=== PATIENT | female | born 1970 | race Native Hawaiian/Other Pacific Islander ===

== ENCOUNTER 2016-10-31 01:41 | Inpatient (IN) | payer BC ==
[~2016-10-31] VITALS: Ht 170.2 cm; Wt 203.7 kg
[~2016-10-31 01:41] MED LIST: AMOX875T8 PO; ASA LOW DOSE81 MG OR; CALCI20 OR; CETI10TA PO; CIPRO XR500 MG PO; CLOP75TA2 PO; CODEINE OR; CYAN10009 IM; FURO20TA67 PO; LISI20TA31 OR; LISI20TA31 PO; METF500T PO; MICRO-K10 MEQ PO; PHENTERMINE37.5 MG OR; POTASSIUM CHLO10 ME2 PO; POTASSIUM25 MEQ OR; VITAMIN D400 UNIT OR; ZANTAC 75 PO; [UNRECOGNIZED DRUG - OTHER] OR
[2016-10-31 02:00] VITALS: BP 148/64; TEMP 98.6
[2016-10-31 02:59] LABS: PLATELET COUNT 82 K/uL (152-353)
[2016-10-31 03:07] LABS: POTASSIUM 3.7 mmol/L (3.6-5.2); SODIUM 134 mmol/L (136-145)
[2016-10-31 06:20] VITALS: BP 86/44; TEMP 98.9; Ht 170.2 cm; Wt 203.7 kg
[2016-10-31 08:19] VITALS: BP 119/47; TEMP 97.8
[2016-10-31 11:07] LABS: PLATELET COUNT 82 K/uL (152-353)
[2016-10-31 11:52] LABS: POTASSIUM 4.1 mmol/L (3.6-5.2)
[2016-10-31 12:00] VITALS: BP 102/58; TEMP 99
[2016-10-31 14:24] LABS: PARTIAL THROMBOPLASTIN TIME 26.7 SECONDS (24.5-33.6)
[2016-10-31 16:00] VITALS: BP 139/67; TEMP 98.7
[2016-10-31 21:22] VITALS: BP 104/47; TEMP 99
[2016-11-01 00:10] VITALS: BP 98/38; TEMP 98.9
[2016-11-01 04:00] VITALS: BP 114/42; TEMP 98.4
[2016-11-01 05:28] LABS: PLATELET COUNT 88 K/uL (152-353)
[2016-11-01 05:49] LABS: POTASSIUM 4.1 mmol/L (3.6-5.2)
[2016-11-01 08:06] VITALS: BP 107/47; TEMP 98.2
[2016-11-01 12:01] VITALS: BP 127/49; TEMP 98
[2016-11-01 16:00] VITALS: BP 137/47; TEMP 98.3
[2016-11-01 20:23] VITALS: BP 140/45; TEMP 98.2
[2016-11-02 00:06] VITALS: BP 126/42; TEMP 98
[2016-11-02 05:13] LABS: PLATELET COUNT 95 K/uL (152-353)
[2016-11-02 05:23] VITALS: BP 99/42; TEMP 98.3
[2016-11-02 06:02] LABS: POTASSIUM 4.3 mmol/L (3.6-5.2)
[2016-11-02 08:00] VITALS: BP 131/67; TEMP 98.4
[2016-11-02 12:00] VITALS: BP 100/55; TEMP 98.8
== END 2016-11-02 14:00 | disposition home or self-care (01) | DRG 602 ==
LOC: ED 01:41 → MED/SURG 04:45
PROVIDERS: Internal Medicine; ADMIT Specialist
DX: L03.116 Cellulitis of left lower limb (principal); I33.9 Acute and subacute endocarditis, unspecified; I89.0 Lymphedema, not elsewhere classified; R06.09 Other forms of dyspnea; E11.9 Type 2 diabetes mellitus without complications; Z86.73 Personal history of transient ischemic attack (TIA), and cerebral infarction without residual deficits; M15.8 Other polyosteoarthritis; I10 Essential (primary) hypertension; K74.69 Other cirrhosis of liver; E66.01 Morbid (severe) obesity due to excess calories
CPT/HCPCS: 36415; 36600; 80048; 80053; 81000; 82140; 82550; 82553; 82805; 82948; 83605; 83735; 83880; 84100; 84484; 85027; 85379; 85610; 85651; 85730; 87040; 93005; 93306; 96365; 96372; 99284; J1644; J2543

== ENCOUNTER → 2016-11-03 08:01 | Outpatient (CLI) | payer BC ==
[~2016-11-03 08:01] MED LIST changes: +[UNRECOGNIZED DRUG - CODE] PO
== END | disposition home or self-care (01) ==
LOC: AMB 08:01
DX: W19.XXXA Unspecified fall, initial encounter (principal)

== ENCOUNTER 2016-11-04 11:19 | Outpatient (CLI) | payer BC ==
[~2016-11-04 11:19] MED LIST changes: -[UNRECOGNIZED DRUG - CODE] PO
[2016-11-04] MEDS ORDERED: [UNRECOGNIZED DRUG - CODE] PO (16:01)
== END 2016-11-04 11:20 | disposition home or self-care (01) ==
LOC: AMB 11:19
DX: L03.116 Cellulitis of left lower limb (principal); R41.0 Disorientation, unspecified
CPT/HCPCS: A0425; A0429

== ENCOUNTER 2016-11-04 11:36 | Inpatient (IN) | payer BC ==
[~2016-11-04] VITALS: Ht 170.2 cm; Wt 208.4 kg
[2016-11-04 11:47] VITALS: BP 114/37; TEMP 98.2
[2016-11-04 12:10] LABS: PLATELET COUNT 119 K/uL (152-353)
[2016-11-04 12:32] LABS: POTASSIUM 4.6 mmol/L (3.6-5.2)
[2016-11-04 13:10] VITALS: BP 120/61; TEMP 98
[2016-11-04 15:03] VITALS: BP 127/54; TEMP 97.6; Ht 170.2 cm; Wt 208.4 kg
[2016-11-04 16:00] VITALS: BP 127/54; TEMP 97.6
[2016-11-04] MEDS ORDERED: [UNRECOGNIZED DRUG - CODE] PO (16:01)
[2016-11-04 20:09] VITALS: BP 117/45; TEMP 98.3
[2016-11-05] VITALS (7 sets, daily range): BP systolic 101–125; BP diastolic 40–57; TEMP 97.8–98.4
[2016-11-05 09:26] LABS: PLATELET COUNT 122 K/uL (152-353)
[2016-11-05 09:27] LABS: POTASSIUM 4.6 mmol/L (3.6-5.2)
--- NOTE | 2016-11-06 02:39 | NUR ---
11/06/16 POWDER RUBBED IN FOLD OF ABDOMEN RED AND TENDER.CC
[2016-11-06 04:00] VITALS: BP 145/67; TEMP 97.8
[2016-11-06 06:07] LABS: PLATELET COUNT 108 K/uL (152-353)
[2016-11-06 06:28] LABS: POTASSIUM 4.6 mmol/L (3.6-5.2)
--- NOTE | 2016-11-06 06:43 | NUR ---
11/06/16 0635 MESSI PRESENT IN ROOM TO DO CXR.CC
[2016-11-06 07:45] VITALS: BP 158/77; TEMP 97.7
[2016-11-06 11:52] VITALS: BP 160/52; TEMP 97.9
[2016-11-06 16:00] VITALS: BP 123/41; TEMP 98.3
[2016-11-06 20:00] VITALS: BP 126/45; TEMP 98
[2016-11-07] VITALS: BP 107/34; TEMP 97.8
[2016-11-07 04:00] VITALS: BP 129/57; TEMP 98.1
[2016-11-07 06:02] LABS: POTASSIUM 4.4 mmol/L (3.6-5.2)
[2016-11-07 06:36] LABS: PLATELET COUNT 91 K/uL (152-353)
[2016-11-07 08:00] VITALS: BP 117/47; TEMP 98.1
[2016-11-07 12:00] VITALS: BP 139/53; TEMP 97.9
[2016-11-07 15:55] VITALS: BP 163/67; TEMP 97.9
[2016-11-07 20:00] VITALS: BP 171/77; TEMP 98.5
[2016-11-08 00:01] VITALS: BP 97/48; TEMP 98.1
[2016-11-08 04:00] VITALS: BP 139/58; TEMP 98
[2016-11-08 05:22] LABS: PLATELET COUNT 97 K/uL (152-353)
[2016-11-08 08:00] VITALS: BP 124/45; TEMP 98.3
[2016-11-08 12:00] VITALS: BP 134/52; TEMP 98.6
[2016-11-08 16:00] VITALS: BP 157/52; TEMP 98.6
[2016-11-08 20:00] VITALS: BP 147/61; TEMP 98.3
[2016-11-09] VITALS: BP 150/76; TEMP 98.5
[2016-11-09 05:28] LABS: PLATELET COUNT 100 K/uL (152-353)
[2016-11-09 05:29] LABS: POTASSIUM 3.9 mmol/L (3.6-5.2)
[2016-11-09 05:56] VITALS: BP 181/69; TEMP 98.8
[2016-11-09 08:00] VITALS: BP 158/72; TEMP 98.7
[2016-11-09 11:54] VITALS: BP 156/52; TEMP 98.5
[2016-11-09 16:00] VITALS: BP 156/61; TEMP 98.2
[2016-11-09 20:00] VITALS: BP 129/64; TEMP 97.8
[2016-11-10 00:15] VITALS: BP 134/60; TEMP 98.6
[2016-11-10 04:00] VITALS: BP 161/70; TEMP 98.1
[2016-11-10 04:52] LABS: PLATELET COUNT 82 K/uL (152-353)
[2016-11-10 05:28] LABS: POTASSIUM 4.2 mmol/L (3.6-5.2)
[2016-11-10 08:00] VITALS: BP 169/64; TEMP 98
[2016-11-10 12:06] VITALS: BP 119/47; TEMP 98.2
[2016-11-10 16:00] VITALS: BP 164/55; TEMP 98.5
[2016-11-10 20:31] VITALS: BP 157/65; TEMP 98.9
[2016-11-11] VITALS: BP 154/67; TEMP 98
[2016-11-11 04:00] VITALS: BP 143/71; TEMP 100.1
[2016-11-11 05:25] LABS: PLATELET COUNT 94 K/uL (152-353)
--- NOTE | 2016-11-11 05:47 | NUR ---
11/11/16 0545 TEMP RECHECKED 98.3.CC
[2016-11-11 05:52] LABS: POTASSIUM 4.4 mmol/L (3.6-5.2)
[2016-11-11 08:00] VITALS: BP 123/63; TEMP 98.4
[2016-11-11 12:20] VITALS: BP 171/64; TEMP 98
[2016-11-11 15:51] VITALS: BP 113/77; TEMP 98.2
[2016-11-11 20:00] VITALS: BP 124/67; TEMP 97.6
[2016-11-12] VITALS: BP 141/62; TEMP 97.7
[2016-11-12 04:00] VITALS: BP 145/70; TEMP 97.7
[2016-11-12 05:10] LABS: PLATELET COUNT 90 K/uL (152-353)
[2016-11-12 05:28] LABS: POTASSIUM 4.6 mmol/L (3.6-5.2)
[2016-11-12 08:00] VITALS: BP 150/71; TEMP 98.1
[2016-11-12 12:13] VITALS: BP 145/69; TEMP 98
[2016-11-12 16:00] VITALS: BP 146/69; TEMP 97.8
[2016-11-12 20:00] VITALS: BP 112/64; TEMP 97.5
[2016-11-13 04:00] VITALS: BP 156/65; TEMP 98.7
[2016-11-13 07:02] LABS: PLATELET COUNT 96 K/uL (152-353)
[2016-11-13 08:00] VITALS: BP 112/73; TEMP 98.6
[2016-11-13 08:24] LABS: POTASSIUM 4.8 mmol/L (3.6-5.2)
[2016-11-13 12:00] VITALS: BP 118/70; TEMP 98.8
--- NOTE | 2016-11-13 14:00 | NUR ---
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
--- NOTE | 2016-11-13 14:20 | NUR ---
[facility] NOTIFIED PT NEEDING TO BE TRANSFERRED.
--- NOTE | 2016-11-13 14:30 | NUR ---
REPORT CALLED TO CHIRAG AT [facility]
--- NOTE | 2016-11-13 15:00 | NUR ---
EMS HERE TO TRANPORT PT VIA [facility]. FAMILY WILL FOLLOW IN ROUTE.
== END 2016-11-13 15:05 | disposition short-term general hospital (02) | DRG 603 ==
LOC: ED 11:36 → MED/SURG 12:51 → ED 13:18 → MED/SURG 11-13 15:05
PROVIDERS: Emergency Medicine; ADMIT Specialist
DX: L03.116 Cellulitis of left lower limb (principal); N18.4 Chronic kidney disease, stage 4 (severe); E86.0 Dehydration; E66.01 Morbid (severe) obesity due to excess calories; I89.0 Lymphedema, not elsewhere classified; K12.0 Recurrent oral aphthae; K75.81 Nonalcoholic steatohepatitis (NASH); L30.4 Erythema intertrigo; E11.9 Type 2 diabetes mellitus without complications; Z86.73 Personal history of transient ischemic attack (TIA), and cerebral infarction without residual deficits; M15.8 Other polyosteoarthritis; K74.69 Other cirrhosis of liver
CPT/HCPCS: 36415; 80048; 80053; 80202; 82140; 82247; 82248; 82570; 83605; 83735; 83880; 84100; 84300; 84540; 85007; 85027; 85379; 85651; 93005; 96365; 96366; 96367; 96372; 99283; J0515; J1644; J1885; J2405; J2543; J3370; J3490

== ENCOUNTER 2016-11-13 15:10 | Outpatient (CLI) | payer BC ==
[~2016-11-13 15:10] MED LIST changes: +[UNRECOGNIZED DRUG - CODE] PO
== END 2016-11-13 17:08 | disposition short-term general hospital (02) ==
LOC: AMB 15:10
DX: L03.116 Cellulitis of left lower limb (principal); N18.4 Chronic kidney disease, stage 4 (severe); E86.0 Dehydration; E66.01 Morbid (severe) obesity due to excess calories; I89.0 Lymphedema, not elsewhere classified; K12.0 Recurrent oral aphthae; K75.81 Nonalcoholic steatohepatitis (NASH); L30.4 Erythema intertrigo; E11.9 Type 2 diabetes mellitus without complications; Z86.73 Personal history of transient ischemic attack (TIA), and cerebral infarction without residual deficits; M15.8 Other polyosteoarthritis; K74.69 Other cirrhosis of liver
CPT/HCPCS: A0425; A0428